=== PATIENT | male | born 1945 | race Caucasian/White ===

== ENCOUNTER 2017-02-01 23:33 | Emergency (ER) | payer MEDICARE ==
[2017-02-01] MEDS ORDERED: diPHENhydraMINE IV* 50 MG/ML 1 ml VIAL (BENADRYL) IV ONE (23:51)
[2017-02-01] MEDS ORDERED: methylPREDNISolone 125 MG* 2 ML VIAL IV ONE (23:51)
[2017-02-01] MEDS ORDERED: Famotidine IV* 10 MG/ML 2 ML (20 mg) IV SLOW PU ONE (23:51)
[2017-02-02 01:03] VITALS: BP 147/81
--- NOTE | 2017-02-08 19:51 | ED ---
Channing Sparks Benjamin, scribed for Jimmie Tovar MD on 02/02/17 at 0004 . Allergic Reaction/Systemic - HPI Summary HPI Summary: 71yo male presents with rash and swollen lips. Pt noticed his rash after taking a shower tonight. 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 Rash is not itchy. Pt has a hx of severe lips swelling a few years ago, but without the rash. - History of Current Complaint Chief Complaint: EDAllergicReaction Time Seen by Provider: 02/01/17 23:44 Hx Obtained From: Patient, Family/Leather Crafter - Onset/Duration: Sudden Onset, Still Present Timing: Constant Severity Initially: Mild Severity Currently: Mild Pain Intensity: 0 Pain Scale Used: 0-10 Numeric Location: Discrete @ - lip swelling Associated Signs And Symptoms: Positive: Rash - diffuse rash. Negative: Throat Tightening - Allergies/Home Medications Allergies/Adverse Reactions: Allergies Allergy/AdvReac Type Severity Reaction Status Date / Time Penicillins Allergy Hives Verified 11/19/15 17:37 PMH/Surg Hx/FS Hx/Imm Hx Endocrine/Hematology History: Denies: Hx Diabetes, Hx Sickle Cell Disease Cardiovascular History: Reports: Hx Hypertension - WELL CONTROLLED WITH MEDICATION, Other Cardiovascular Problems/Disorders - HIGH CHOLESTEROL WELL CONTROLLED Denies: Hx Pacemaker/ICD Respiratory History: Denies: Other Respiratory Problems/Disorders GI History: Denies: Other GI Disorders History: Denies: Hx Renal Disease, Other Problems/Disorders Musculoskeletal History: Reports: Hx Arthritis - RIGHT KNEE Denies: Other Musculoskeletal History Sensory History: Reports: Hx Cataracts - RIGHT EYE Denies: Hx Contacts or Glasses, Hx Hearing Aid Opthamlomology History: Reports: Hx Cataracts - RIGHT EYE Denies: Hx Contacts or Glasses Neurological History: Denies: Other Neuro Impairments/Disorders Psychiatric History: Denies: Hx Panic Disorder - Cancer History Cancer Type, Location and Year: BASAL CELL REMOVED FROM FOREARM - Surgical History Surgery Procedure, Year, and Place: 2 HERNIA SURGERIES - 2003, 2011 [facility]. LEFT KNEE REPLACEMENT- 2007 [facility]. 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 Rt CATARACT 2013. Lt EYE -SMALL TEAR - LASER TREATMENT - NO IMPLANTS Hx Anesthesia Reactions: No Infectious Disease History: No Infectious Disease History: Denies: Traveled Outside the [place] in Last 30 Days - Family History Known Family History: Positive: Hypertension Negative: Diabetes - Social History Lives: With Family Substance Use Type: Reports: None Review of Systems Constitutional: Negative Eyes: Negative ENT: Negative Cardiovascular: Negative Respiratory: Negative Gastrointestinal: Negative Genitourinary: Negative Musculoskeletal: Negative Positive: Rash, Other - swollen lips Neurological: Negative Psychological: Normal All Other Systems Reviewed And Are Negative: Yes Physical Exam - Summary Physical Exam Summary: VITAL SIGNS: Reviewed. GENERAL: Patient is a well-developed and nourished MALE who is lying comfortable in the stretcher. Patient is not in any acute respiratory distress. HEAD AND FACE: No signs of trauma. No ecchymosis, hematomas or skull depressions. No sinus tenderness. EYES: PERRLA, EOMI x 2, No injected conjunctiva, no nystagmus. EARS: Hearing grossly intact. Ear canals and tympanic membranes are within normal limits. MOUTH: Swelling in upper and lower lips, more over the left side. Also swelling in the oropharynx and uvula. NECK: Supple, trachea is midline, no adenopathy, no JVD, no carotid bruit, no c- spine tenderness, neck with full ROM. CHEST: Symmetric, no tenderness at palpation LUNGS: Clear to auscultation bilaterally. No wheezing or crackles. CVS: Regular rate and rhythm, S1 and S2 present, no murmurs or gallops appreciated. ABDOMEN: Soft, non-tender. No signs of distention. No rebound no guarding, and no masses palpated. Bowel sounds are normal. EXTREMITIES: FROM in all major joints, no edema, no cyanosis or clubbing. NEURO: Alert and oriented x 3. No acute neurological deficits. Speech is normal and follows commands. SKIN: Dry and warm. Triage Information Reviewed: Yes Vital Signs On Initial Exam: Initial Vitals Temp Pulse Resp BP Pulse Ox 98.7 F 71 16 152/83 99 02/01/17 23:36 02/01/17 23:36 02/01/17 23:36 02/01/17 23:36 02/01/17 23:36 Vital Signs Reviewed: Yes Diagnostics - Vital Signs Vital Signs Temp Pulse Resp BP Pulse Ox 02/01/17 23:36 98.7 F 71 16 152/83 99 - Laboratory Lab Statement: Any lab studies that have been ordered have been reviewed, and results considered in the medical decision making process. Allergic Reaction Course/Dx - Diagnoses Provider Diagnoses: Allergic reaction, Rash, Angioedema Discharge - Discharge Plan Condition: Stable Disposition: HOME Prescriptions: Hydroxyzine Pamoate [Vistaril] 25 mg PO Q6HR PRN #20 cap PRN Reason: Itching predniSONE TAB* [Deltasone TAB*] 40 mg PO DAILY #10 tab Patient Education Materials: General Allergic Reaction (ED), Acute Rash (ED), Angioedema (ED) Referrals: Louie Fuller MD [Primary Care Provider] - Additional Instructions: PLEASE AVOID TAKING SULFA DRUGS FROM NOW ON. RETURN TO EMERGENCY DEPARTMENT FOR ANY NEW OR WORSENING SYMPTOMS The documentation as recorded by the Channing paige Benjamin accurately reflects the service I personally performed and the decisions made by , Jimmie Tovar MD.
== END 2017-02-02 01:16 | disposition home or self-care (01) ==
LOC: ED 23:33
DX: T78.3XXA Angioneurotic edema, initial encounter (principal); R21 Rash and other nonspecific skin eruption; T78.40XA Allergy, unspecified, initial encounter
CPT/HCPCS: 96374; 96375; 99283; J1200; J2930